=== PATIENT | male | born 1985 | race Caucasian/White ===

== ENCOUNTER 2016-09-02 17:43 | Observation (INO) | payer MEDICAID ==
[~2016-09-02] VITALS: Ht 180.3 cm; Wt 88.6 kg
[~2016-09-02 17:43] MED LIST: GABAPENTIN
[2016-09-02 18:29] LABS: BLOOD UREA NITROGEN 12 mg/dL (7-18)
[2016-09-02 18:35] LABS: ACETAMINOPHEN < 2 mcg/mL (10-30)
[2016-09-02 19:28] LABS: DAU SCREEN DISCLAIMER
[2016-09-02] MEDS ORDERED: ARIP10TA13 PO (19:40)
[2016-09-02] MEDS ORDERED: HYDR50TA13 PO (19:40)
[2016-09-02] MEDS ORDERED: PARO40TA3 PO (19:40)
[2016-09-02] MEDS ORDERED: METR55GE TP (19:40)
[2016-09-02] MEDS ORDERED: GABA-827 PO (19:40)
[2016-09-02] MEDS ORDERED: DIPHENHYDRAMINE 50 MG CAPSULE PO PRN (22:00)
[2016-09-02] MEDS ORDERED: GABAPENTIN 400 MG CAPSULE PO SCH (22:00)
[2016-09-02] MEDS ORDERED: ACETAMINOPHEN 325 MG TABLET PO PRN (22:00)
[2016-09-02] MEDS ORDERED: DOCUSATE 100 MG CAPSULE PO PRN (22:00)
[2016-09-02] MEDS ORDERED: ZIPRASIDONE 20 MG INJ IM PRN (22:00)
[2016-09-02] MEDS ORDERED: ONDANSETRON ODT 4 MG PO PRN (22:00)
[2016-09-02] MEDS: HALOPERIDOL 5 MG TABLET PO PRN (22:42)
[2016-09-02] MEDS: NICOTINE 7 MG/24 HR PATCH.TD24 TD SCH (22:42)
[2016-09-02] MEDS: GABAPENTIN 100 MG CAPSULE PO SCH ×2 (22:55→23:50)
[2016-09-02] MEDS: hydrOXyzine 50MG TABLET PO PRN (23:49)
[2016-09-03 07:45] VITALS: BP 118/85
[2016-09-03] MEDS: ARIPIPRAZOLE 10 MG TABLET PO SCH (09:00)
[2016-09-03] MEDS: PAROXETINE 20 MG TABLET PO SCH (09:25)
[2016-09-03] MEDS: hydrOXyzine 50MG TABLET PO PRN (10:55)
[2016-09-03] MEDS: GABAPENTIN 100 MG CAPSULE PO SCH ×2 (16:37→20:03)
[2016-09-03 18:27] VITALS: BP 118/74
[2016-09-03] MEDS: NICOTINE 7 MG/24 HR PATCH.TD24 TD SCH (22:00)
[2016-09-04 08:05] VITALS: BP 112/73
[2016-09-04] MEDS: PAROXETINE 20 MG TABLET PO SCH (08:33)
[2016-09-04] MEDS: ARIPIPRAZOLE 10 MG TABLET PO SCH (08:34)
[2016-09-04] MEDS: GABAPENTIN 100 MG CAPSULE PO SCH ×3 (09:37→20:27)
[2016-09-04] MEDS: hydrOXyzine 50MG TABLET PO PRN (14:31)
[2016-09-04] MEDS: HALOPERIDOL 5 MG TABLET PO PRN (17:57)
[2016-09-04 19:17] VITALS: BP 145/75
[2016-09-04] MEDS: NICOTINE 7 MG/24 HR PATCH.TD24 TD SCH (22:00)
[2016-09-05 07:53] VITALS: BP 128/79
[2016-09-05] MEDS: GABAPENTIN 100 MG CAPSULE PO SCH (08:15)
[2016-09-05] MEDS: PAROXETINE 20 MG TABLET PO SCH (08:15)
[2016-09-05] MEDS: ARIPIPRAZOLE 10 MG TABLET PO SCH (08:16)
[2016-09-05] MEDS: hydrOXyzine 50MG TABLET PO PRN (10:56)
[2016-09-05] MEDS: HALOPERIDOL 5 MG TABLET PO PRN (11:02)
== END 2016-09-05 12:00 ==
LOC: ED 20:00 → INTOOBSV 20:19 → EDIP 20:19 → SUATTDRO 20:37 → 3E 22:13
PROVIDERS: ADMIT Family Medicine; ATTEND Family Medicine
DX: R45.851 Suicidal ideations (principal); F43.10 Post-traumatic stress disorder, unspecified; F20.9 Schizophrenia, unspecified; F12.90 Cannabis use, unspecified, uncomplicated; F17.200 Nicotine dependence, unspecified, uncomplicated; Z81.8 Family history of other mental and behavioral disorders; F31.9 Bipolar disorder, unspecified
CPT/HCPCS: 36415; 80048; 80307; 80329; 82040; 85025; 99285; G0378; Q0177; G0480

== ENCOUNTER 2017-06-05 18:58 | Emergency (ER) | payer MEDICAID ==
[~2017-06-05] VITALS: Ht 167.6 cm; Wt 82.0 kg
[~2017-06-05 18:58] MED LIST changes: +ARIP10TA33 PO; +GABA-827 PO; +HYDR50TA13 PO; +METR55GE TP; +PARO40TA3 PO
[2017-06-05 19:34] LABS: MICROSCOPIC NOT IND
[2017-06-05 19:48] LABS: AMPHETAMINE SCREEN, URINE Negative (Negative); BARBITURATE SCREEN, URINE Negative (Negative); BENZODIAZEPINE SCREEN, URINE Negative (Negative); CANNABINOID SCREEN, URINE Negative (Negative); COCAINE SCREEN, URINE Negative (Negative); METHADONE SCREEN, URINE Negative (Negative); OPIATE SCREEN, URINE Negative (Negative)
[2017-06-05 20:02] LABS: CULTURE INDICATED? NO
[2017-06-05] MEDS ORDERED: ZIPRASIDONE 20 MG INJ IM ONE (21:27)
[2017-06-05] MEDS ORDERED: ZIPRASIDONE 20 MG INJ IM PRN (21:30)
[2017-06-06 04:50] VITALS: BP 145/86
== END 2017-06-06 08:23 | disposition home or self-care (01) ==
LOC: ED 06-06 00:37
DX: F10.121 Alcohol abuse with intoxication delirium (principal); F25.9 Schizoaffective disorder, unspecified; F15.10 Other stimulant abuse, uncomplicated; F31.9 Bipolar disorder, unspecified; F43.10 Post-traumatic stress disorder, unspecified
CPT/HCPCS: 80307; 81003; 96372; 99284; J3486